=== PATIENT | female | born 1945 | race Two or more races ===

== ENCOUNTER 2020-09-10 13:35 | Emergency (ER) | payer OTHER ==
[~2020-09-10] VITALS: Ht 157.5 cm; Wt 83.5 kg
[2020-09-10] MEDS ORDERED: COZAAR100 MG (13:50)
== END 2020-09-10 21:02 | disposition home or self-care (01) ==
LOC: ER 13:35
DX: S42.142A Displaced fracture of glenoid cavity of scapula, left shoulder, initial encounter for closed fracture (principal); W18.39XA Other fall on same level, initial encounter; Y93.89 Activity, other specified; Y92.098 Other place in other non-institutional residence as the place of occurrence of the external cause; Y99.8 Other external cause status

== ENCOUNTER 2020-09-12 13:23 | Outpatient (CLI) | payer OTHER ==
[~2020-09-12 13:23] MED LIST: COZAAR100 MG
== END 2020-09-12 13:34 | disposition home or self-care (01) ==
LOC: TOM 13:23
DX: S42.109A Fracture of unspecified part of scapula, unspecified shoulder, initial encounter for closed fracture (principal); S40.022A Contusion of left upper arm, initial encounter

== ENCOUNTER 2020-09-20 11:21 | Outpatient (CLI) | payer OTHER | END 2020-09-20 11:30 | disposition home or self-care (01) | LOC: TOM 11:21 | PROVIDERS: ATTEND Orthopaedic Surgery | DX: S42.142A Displaced fracture of glenoid cavity of scapula, left shoulder, initial encounter for closed fracture (principal) ==

== ENCOUNTER 2021-01-27 07:07 | Outpatient (CLI) | payer OTHER | END 2021-01-27 07:18 | disposition home or self-care (01) | LOC: SONOGRAMA 07:07 | PROVIDERS: ATTEND Pathology Anatomic Pathology | DX: D34 Benign neoplasm of thyroid gland (principal); E04.2 Nontoxic multinodular goiter; E06.3 Autoimmune thyroiditis ==

== ENCOUNTER 2025-08-31 07:35 | Outpatient (CLI) | payer OTHER | END 2025-08-31 07:36 | disposition home or self-care (01) | LOC: NUCLEAR 07:35 | DX: C34.90 Malignant neoplasm of unspecified part of unspecified bronchus or lung (principal) | CPT/HCPCS: 78815; 93306; A9552 ==

== ENCOUNTER → 2025-08-31 12:05 | Outpatient (CLI) | payer OTHER ==
[2025-08-31 13:29] LABS: CREATININE SERUM 0.77 mg/dL (0.55-1.02)
== END | disposition home or self-care (01) ==
LOC: LAB 12:05
DX: C34.90 Malignant neoplasm of unspecified part of unspecified bronchus or lung (principal)

== ENCOUNTER 2025-09-03 07:17 | Outpatient (CLI) | payer OTHER | END 2025-09-03 07:19 | disposition home or self-care (01) | LOC: MRI 07:17 | DX: C34.90 Malignant neoplasm of unspecified part of unspecified bronchus or lung (principal) | CPT/HCPCS: 70552; Q9965 ==